=== PATIENT | female | born 2000 | race African-American/Black ===

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

== ENCOUNTER 2022-04-04 12:06 | Emergency (ER) | payer MEDICAID ==
[~2022-04-04] VITALS: Ht 165.1 cm; Wt 53.0 kg
[2022-04-04] MEDS ORDERED: BACITRACIN ZINC OINT UDPKT TOP ONE (13:15)
[2022-04-04] MEDS ORDERED: TETANUS, DIPHTHERIA, PERTUSSIS VAC/PF 0.5ML (>10YR OLD) IM ONE (13:15)
[2022-04-04] MEDS ORDERED: T3 PO (14:57)
[2022-04-04] MEDS ORDERED: BO1 TP (14:57)
[2022-04-04 15:16] VITALS: BP 113/77
== END 2022-04-04 15:18 | disposition home or self-care (01) ==
LOC: ER 12:20
DX: S02.2XXA Fracture of nasal bones, initial encounter for closed fracture (principal); S20.219A Contusion of unspecified front wall of thorax, initial encounter; S00.211A Abrasion of right eyelid and periocular area, initial encounter; S00.31XA Abrasion of nose, initial encounter; F12.10 Cannabis abuse, uncomplicated; V43.52XA Car driver injured in collision with other type car in traffic accident, initial encounter; Y08.89XA Assault by other specified means, initial encounter; Y93.89 Activity, other specified; Y92.488 Other paved roadways as the place of occurrence of the external cause; Y99.8 Other external cause status
CPT/HCPCS: 70486; 71045; 81025; 90471; 90715; 99284

== ENCOUNTER 2023-05-27 14:17 | Emergency (ER) | payer MEDICAID ==
[~2023-05-27] VITALS: Ht 167.6 cm; Wt 55.0 kg
[~2023-05-27 14:17] MED LIST: BO1 TP; T3 PO
[2023-05-27 14:26] VITALS: BP 143/97; PULSE 84; RESP 18; O2SAT 99
[2023-05-27] MEDS ORDERED: ACETAMINOPHEN 325MG TABLET PO NR (14:34)
[2023-05-27 14:47] VITALS: TEMP 98.7
[2023-05-27 15:15] LABS: BASOPHILS % 0.4 % (0.0-2.0); EOSINOPHILS % 0.2 % (0.0-5.0); HEMATOCRIT. 41.3 % (36.0-48.0); HEMOGLOBIN. 14.2 g/dL (12.0-16.0); LYMPHOCYTES % 28.3 % (20.0-50.0); MEAN CORPUSCULAR HEMOGLOBIN 33.1 pg (28.0-32.0); MEAN CORPUSCULAR HGB CONC 34.3 g/dL (31.0-37.0); MEAN CORPUSCULAR VOLUME 96.7 fL (81.0-99.0); MEAN PLATELET VOLUME 7.1 fl (7.4-10.4); MONOCYTES % 8.7 % (2.0-8.0); NEUTROPHILS % 62.4 % (40.0-76.0); PLATELET 303 x1000/uL (130-400); RED BLOOD CELL COUNT 4.27 mill/uL (4.2-5.4); RED CELL DISTRIBUTION WIDTH 12.4 % (11.6-14.6); WHITE BLOOD COUNT 8.7 x1000/uL (4.5-11.0)
[2023-05-27 15:35] LABS: HCG SCREEN POSITIVE
[2023-05-27 15:38] LABS: ALANINE AMINOTRANSFERASE 15 IU/L (10-49); ALBUMIN 4.6 g/dL (3.2-4.8); ASPARTATE AMINOTRANSFERASE 32 IU/L (<34); BILIRUBIN TOTAL 0.9 mg/dL (0.1-1.0); CALCIUM 9.8 mg/dL (8.7-10.4); CARBON DIOXIDE 26 mEq/L (21-32); CHLORIDE 103 mEq/L (98-107); CREATININE 0.8 mg/dL (0.6-1.0); GLUCOSE 100 mg/dL (70-105); POTASSIUM 3.3 mEq/L (3.5-5.1); PROTEIN TOTAL 7.8 g/dL (6.0-8.3); SODIUM 137 mEq/L (136-145); UREA NITROGEN BLOOD 9 mg/dL (9-23)
[2023-05-27 15:40] LABS: TROPONIN I HIGH SENSITIVITY < 4 ng/L (3.0-34)
== END 2023-05-27 22:05 | disposition left against medical advice (07) ==
LOC: ER 14:22 → CANBEDREQ 19:02 → ER 22:05
DX: R06.02 Shortness of breath (principal); F12.10 Cannabis abuse, uncomplicated; F10.20 Alcohol dependence, uncomplicated
CPT/HCPCS: 36415; 71045; 80053; 84484; 84703; 85025; 85379; 93005; 99285

== ENCOUNTER 2024-02-04 16:43 | Emergency (ER) | payer MEDICAID ==
[~2024-02-04] VITALS: Ht 162.6 cm; Wt 50.0 kg
[2024-02-04 16:48] VITALS: O2SAT 98
[2024-02-04 16:52] VITALS: BP 112/79; PULSE 63; TEMP 98.2; O2SAT 99
== END 2024-02-04 19:10 | disposition left against medical advice (07) ==
LOC: ER 16:43
DX: R50.9 Fever, unspecified (principal); Z53.21 Procedure and treatment not carried out due to patient leaving prior to being seen by health care provider